=== PATIENT | male | born 1960 | race Caucasian/White ===

== ENCOUNTER 2022-03-01 11:04 | Emergency (ER) | payer OTHER, SELFPAY ==
[2022-03-01 12:56] VITALS: BP 123/78; PULSE 73; RESP 18; TEMP 36.1; O2SAT 99
--- NOTE | 2022-03-01 13:02 | ED.NAVMDI ---
HPI - Nausea/Vomiting/Diarrhea General Chief complaint: Nausea/Vomiting/Diarrhea Stated complaint: diarrhea Time Seen by Provider: 03/01/22 13:10 Source: patient Mode of arrival: ambulatory Limitations: no limitations History of Present Illness HPI Narrative: Marvin is a 62-year-old male patient presenting to the clinic today with complaints of cough, congestion, diarrhea, headache, body aches, and hemorrhoids. He reports that he has had symptoms for approximately 1 week. Is having a lot of bleeding due to the diarrhea to his hemorrhoids. He denies any known fever or chills. 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 Patient denies any fever, chills, rash, visual changes, dizziness, shortness of breath, chest pain, palpitations, nausea, vomiting, diarrhea, constipation, abdominal pain, or any urinary issues. PMFSH Comments At the time of my signature, I reviewed and agree with the nursing past medical, surgical, social, and family history. There is no relevant family history pertinent to the patient complaint. Exam Narrative: General: Well-developed, obese, in no apparent distress Head: Normocephalic, atraumatic Eyes: Pupils equally round and reactive to light bilaterally, EOM intact, sclera and conjunctive clear, no discharge, lids normal Ears: TMs intact and clear, ear canals clear, no drainage, grossly hearing normal. Nose: Nares patent, clear nasal discharge, no inflammation, no sinus tenderness. Mouth: Oral pharynx without lesions or masses, good dentition, MMM. Postnasal drip Neck: Supple, trachea midline, no enlargement of anterior or posterior cervical nodes, no thyroid masses or goiter palpable. Cardio: Regular rate and rhythm, s1 and s2 normal, no murmur appreciated. Resp: Clear to auscultation bilaterally, no rhonchi, rales, wheezing or rubs Abdomen: Soft, pliable, nontender palpation, bowel sounds present all 4 quadrants, no CVAT tenderness, no organomegaly Rectum: External exam performed and patient has 2 large hemorrhoid externally with mild irritation with old blood. No acute bleeding noted. No sign of thrombus Course Course Emergency Course: Portions of this record may have been created with voice recognition software. Level of Care: Express Care Visit Vital Signs Vital signs: Vital Signs Temperature 36.1 C L 03/01/22 12:56 Pulse Rate 73 03/01/22 12:56 Respiratory Rate 18 03/01/22 12:56 Blood Pressure 123/78 03/01/22 12:56 Pulse Oximetry 99 03/01/22 12:56 Oxygen Delivery Room Air 03/01/22 12:56 Temperature 36.1 C L 03/01/22 12:56 Pulse Rate 73 03/01/22 12:56 Respiratory Rate 18 03/01/22 12:56 Blood Pressure 123/78 03/01/22 12:56 Pulse Oximetry 99 03/01/22 12:56 Oxygen Delivery Room Air 03/01/22 12:56 Vital signs reviewed MDM - Nausea/Vomiting/Diarrhea MDM Narrative Medical decision making narrative: At the time of visit patient is resting comfortably on the exam table. Patient tested positive for influenza a in the clinic today. Prescription for prednisone was sent to the pharmacy to help with the nasal congestion. He does not meet criteria for any Tamiflu at this time due to length of symptoms. Supportive measures were discussed with the patient and he voiced understanding of discharge instructions. Will also send in prescription for hemorrhoid cream and Zofran for nausea. Differential Diagnosis Differential diagnosis: Likely gastroenteritis, dehydration and other (Influenza a) Discharge Plan
== END 2022-03-01 13:35 | disposition home or self-care (01) ==
PROVIDERS: Emergency Provider Nurse Practitioner Family
DX: J10.1 Influenza due to other identified influenza virus with other respiratory manifestations (principal); K64.5 Perianal venous thrombosis; Z20.822 Contact with and (suspected) exposure to COVID-19; I10 Essential (primary) hypertension; E11.9 Type 2 diabetes mellitus without complications
CPT/HCPCS: 87426; 87804; 99213; C9803; G0463

== ENCOUNTER 2023-04-06 14:07 | Emergency (ER) | payer OTHER, SELFPAY ==
--- NOTE | 2023-04-06 14:18 | ED.GIBLEED ---
HPI - GI Bleed General Chief complaint: Abdominal Pain Stated complaint: hemorrhoids Time Seen by Provider: 04/06/23 14:12 Source: patient Mode of arrival: ambulatory Limitations: no limitations History of Present Illness HPI Narrative: Mr. Farr is a 63-year-old male patient presenting to the clinic today with complaints of bleeding hemorrhoids. He reports that this has been going on for a couple weeks. Has been seen in the past for this similar issue. Reports that he was taking some antibiotics for a URI and this caused his hemorrhoids to flare up and start bleeding. He reports he is having more rectal pain in the morning and as the day goes on it improves. Denies any loss of weight or any nausea/vomiting. Related Data Home Medications Medication Instructions Recorded Confirmed empagliflozin 10 mg tablet 10 mg PO DAILY 03/01/22 03/01/22 (Jardiance) losartan 50 mg tablet 50 mg PO DAILY 03/01/22 03/01/22 metformin 1,000 mg tablet 1,000 mg PO DAILY 03/01/22 03/01/22 multivitamin with iron 1 tablet PO DAILY 04/06/23 04/06/23 Allergies Allergy/AdvReac Type Severity Reaction Status Date / Time Penicillins Allergy Unknown Unknown Verified 04/06/23 14:19 Review of Systems Review of Systems: Pertinent positives per HPI. Patient denies any fever, chills, rash, headache, visual changes, dizziness, cough, shortness of breath, chest pain, palpitations, nausea, vomiting, diarrhea, constipation, abdominal pain, or any urinary issues. PMFSH Comments At the time of my signature, I reviewed and agree with the nursing past medical, surgical, social, and family history. There is no relevant family history pertinent to the patient complaint. Exam Narrative: General: Well-developed, well nourished, in no apparent distress. Head: Normocephalic, atraumatic. Cardio: Regular rate and rhythm, s1 and s2 normal, no murmur appreciated. Resp: Clear to auscultation bilaterally, no rhonchi, rales, wheezing or rubs. Abdomen: Soft, pliable, bowel sounds present in all quadrants, non-tender to palpation, no organomegly, no CVAT tenderness. Rectal: Several tender external hemorrhoids around the rectum without thrombosis-no obvious bleeding at this time Course Course Emergency Course: Portions of this record may have been created with voice recognition software. Level of Care: Express Care Visit Vital Signs Vital signs: Vital signs reviewed MDM - GI Bleed MDM Narrative Medical decision making narrative: At the time of visit patient is resting comfortably on the exam table. Patient appears to be nontoxic. Plan: Will send in prescription for Anusol HC. Supportive measures were discussed with the patient and they voiced understanding discharge instructions and agrees to treatment plan. Return precautions reviewed Differential Diagnosis Differential diagnosis: Likely hemorrhoids, infectious diarrhea, Lower gastrointestinal hemorrhage and anal fissure Discharge Plan Discharge Clinical Impression: External bleeding hemorrhoids Patient Disposition: Home, Self-Care Condition: Stable Instructions: Antibiotic Form, Hemorrhoids (ED) Additional Instructions: Eat a high-fiber diet Increase fluids and stay well hydrated May apply Witch Racheal to the hemorrhoids to help alleviate pain and swelling Recommend taking stool softener if you are passing hard stool May apply cool compress/ice pack to the affected area to help alleviate pain and swelling May take Tylenol/Motrin as needed for pain Follow-up with your primary care doctor in 2 weeks if symptoms persist or sooner if they worsen Dr. Moya-General Surgeon info given to you today in the clinic-whenever your ready to see a surgeon to have these removed if they continue to be bothersome give his office a call Prescriptions: New hydrocortisone [Anusol-HC] 2.5 % cream with perineal applicator 1 applic RECTAL BID 7 Days Qty: 30 0RF No Action josh
[2023-04-06 14:20] VITALS: BP 134/78; PULSE 70; RESP 16; TEMP 36.5; O2SAT 98
== END 2023-04-06 14:38 | disposition home or self-care (01) ==
PROVIDERS: Emergency Provider Nurse Practitioner Family
DX: K64.5 Perianal venous thrombosis (principal); I10 Essential (primary) hypertension; E11.9 Type 2 diabetes mellitus without complications
CPT/HCPCS: 99213; G0463